=== PATIENT | female | born 2005 | race Caucasian/White ===

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

== ENCOUNTER 2023-12-17 17:53 | Emergency (ER) | payer OTHER ==
[2023-12-17 18:17] VITALS: BP 108/73; PULSE 82; RESP 16; TEMP 98; BMI 23.0
== END 2023-12-17 19:49 | disposition home or self-care (01) ==
LOC: JERFT 17:53
DX: S62.325A Displaced fracture of shaft of fourth metacarpal bone, left hand, initial encounter for closed fracture (principal); W22.8XXA Striking against or struck by other objects, initial encounter
CPT/HCPCS: 73130-TC-LT-FY; 99283-25